=== PATIENT | female | born 1990 | race Hispanic/Latino ===

== ENCOUNTER 2024-08-02 23:17 | Emergency (ER) | payer SELFPAY ==
[~2024-08-02] VITALS: Ht 154.9 cm; Wt 53.1 kg
--- NOTE | 2024-08-02 23:34 | NUR ---
PATIENT BEING VERBALLY ABUSIVE TOWARDS STAFF, YELLING, CRYING C/O ABDOMINAL PAIN, ED MD MADE AWARE.
--- NOTE | 2024-08-02 23:40 | NUR ---
PATIENT IS ALERT AND ORIENTED X4, PATIENT BEING VERBALLY ABUSIVE TOWARDS STAFF, STANDING, YELLING ACROSS THE HALLWAY. REPORTED SHE "FELL IN THE ROOM BECAUSE OF THE PAIN". PATIENT WAS ADVISED TO PULL THE CORD IN THE RESTOOM ONCE SHE WAS DONE URINATING IF ASSITANCE WAS NEEDED, PATIENT HAD VERBALIZED UNDESTANDING. NO DEFORMITY NOTED TO BLE. PATIENT DENIED HITTING HEAD OR LOC, NO BLOOD THINNERS. MIDLEVEL PA, HOUSE SUP AND CHARGE NURSE MADE AWARE.
--- NOTE | 2024-08-02 23:42 | NUR ---
PATIENT IN BED, CALL LIGHT WITHIN REACH, PATIENT WAS EDUCATED ON AND VERBALIZED UNDERSTANDING OF THE IMPORTANCE OF USING CALL LIGHT FOR ASSITANCE, VITAL SIGNS WITHIN RANGE.
[2024-08-02] MEDS: ketOROlac 15MG/ML VIAL (15MG/ML) ONE (23:53)
[2024-08-02] MEDS: ketOROlac 15MG/ML VIAL (15MG/ML) IV ONE (23:53)
[2024-08-02 23:55] LABS: BASOPHILS # (AUTO) 0.07 K/uL (0.00-0.20); BASOPHILS % (AUTO) 0.5 % (0.0-5.0); EOSINOPHILS # (AUTO) 0.27 K/uL (0.00-0.70); EOSINOPHILS % (AUTO) 1.8 % (0.0-8.0); HEMATOCRIT 41.8 % (36-48); IMMATURE GRANULOCYTE ABSOLUTE 0.05 K/uL (0-1); LYMPHOCYTES # (AUTO) 3.7 K/uL (1.0-4.8); LYMPHOCYTES % (AUTO) 25.1 % (21.0-51.0); MEAN CORPUSCULAR HEMOGLOBIN 30.1 pg (27.0-33.0); MEAN CORPUSCULAR HGB CONC 32.1 g/dL (32.0-36.0); MEAN CORPUSCULAR VOLUME 93.9 fL (79-99); MONOCYTES # (AUTO) 1.2 K/uL (0.1-1.0); NEUTROPHILS # (AUTO) 9.5 K/uL (1.8-7.7); NEUTROPHILS % (AUTO) 64.3 % (40.0-77.0); PLATELET COUNT (AUTO) 296 K/uL (130-400); RED BLOOD CELL COUNT(AUTO) 4.45 MIL/uL (4.00-5.50); RED CELL DISTRIBUTION WIDTH 11.8 % (11.0-15.5); WHITE BLOOD COUNT (AUTO) 14.8 K/uL (4.8-10.8)
[2024-08-03 00:07] LABS: APPEARANCE,URINE CLEAR (CLEAR); BILIRUBIN,URINE NEGATIVE (NEGATIVE); COLOR,URINE COLORLESS (YELLOW); GLUCOSE, URINE (UA) NEGATIVE (NEGATIVE); KETONES,URINE NEGATIVE (NEGATIVE); LEUKOCYTE ESTERASE ,URINE 250 Leu/uL (NEGATIVE); NITRATE,URINE NEGATIVE (NEGATIVE); OCCULT BLOOD,URINE MODERATE (NEGATIVE); PH,URINE 6.5 (5.0-8.0); PROTEIN,URINE NEGATIVE (NEGATIVE); UROBILINOGEN,URINE 0.2 mg/dL (0.2-1.0)
[2024-08-03 00:08] LABS: ADD UA MICROSCOPIC YES
[2024-08-03 00:14] LABS: BILIRUBIN,DIRECT 0.1 mg/dL (0.0-0.3); BILIRUBIN,TOTAL 0.4 mg/dL (0.2-1.0); TOTAL PROTEIN, SERUM 7.7 g/dL (6.0-8.3)
[2024-08-03 00:22] LABS: CREATININE 0.7 mg/dL (0.5-1.0); POTASSIUM 3.2 mmol/L (3.5-5.1)
[2024-08-03 00:24] LABS: BACTERIA,URINE MANY /HPF (None Seen); MUCUS,URINE RARE LPF (None Seen); RBC,URINE 0-1 /HPF (0-1); SQUAMOUS EPITHELIAL CELL,UR RARE /HPF (0-2)
--- NOTE | 2024-08-03 00:45 | HMCIMG ---
CT ABDOMEN/PELVIS W/O CONTRAST HISTORY: Renal stone COMPARISON: None TECHNIQUE: Multiple sequential axial images of the abdomen and pelvis were obtained from the dome of the diaphragm through symphysis pubis. Patient was not given contrast through intravenous route. Oral contrast was not given. FINDINGS: No pleural effusion is seen bilaterally. There is no evidence of parenchymal disease or pulmonary nodule of the visualized lower lungs. The heart is not enlarged. The liver, spleen, adrenal glands and pancreas are unremarkable. There is no evidence of hydronephrosis bilaterally. No evidence of renal stone is seen. Fecal material is seen in the colon. There are normal size retroperitoneal and mesenteric lymph nodes. No ascites is seen. Atherosclerotic changes are present. Pelvic sidewalls are symmetric bilaterally. Bladder is well distended without wall thickening. IMPRESSION: 1. No acute findings. CT was performed with one or more following dose reduction techniques: automated exposure control, adjustment of the mA and kv according to patient's size, or use of a iterative reconstruction technique.
--- NOTE | 2024-08-03 01:07 | ERN ---
General Chief Complaint: Abdominal Pain Stated Complaint: BILATERAL FLANK PAIN WITH DIARRHEA Time Seen by MD: 23:25 Time Seen by Midlevel: 23:25 Source: patient History of Present Illness Initial Comments The patient is a 33-year-old female being brought in by EMS for evaluation of bilateral flank pain with associated diarrhea that allegedly started yesterday. According to EMS the patient reported more than 10 episodes of diarrhea in the last 24 hours. She rates the pain 10/10 Allergies: Coded Allergies: No Known Drug Allergies (Unverified Allergy, Unknown, 08/02/24) Home Meds Active Scripts Famotidine (Pepcid) 20 Mg Tablet, 1 TAB PO BID for 10 Days, #20 TAB 0 Refills Prov:MAYELA TAYLOR 08/03/24 Ondansetron (Ondansetron Odt) 4 Mg Tab.rapdis, 4 MG PO BID for 7 Days, #14 TAB Prov:MAYELA TAYLOR 08/03/24 Nitrofurantoin/Nitrofuran Mac (Macrobid) 100 Mg Cap, 1 CAP PO BID for 7 Days, #14 CAP 0 Refills Prov:MAYELA TAYLOR 08/03/24 Past Medical History Past Medical History: No Pertinent History Past Surgical History: None Female( History) LMP: Jun 28, 2024 ROS Dictation CONSTITUTIONAL: Negative except for HPI HEAD/FACE: Negative except for HPI EENT: Negative except for HPI RESPIRATORY: Negative except for HPI GASTROINTESTINAL/ABDOMINAL: Negative except for HPI GENITOURINARY: Negative except for HPI MUSCULOSKELETAL: Negative except for HPI INTEGUMENTARY: Negative except for HPI NEUROLOGICAL/PSYCH: Negative except for HPI HEMATOLOGIC/LYMPHATIC: Negative except for HPI All Systems Negative, Except as noted above. 13 point review of systems assessed and all negative except for above. Physical Exam Physical Exam Dictation Vital Signs reviewed General Appearance: Alert, verbally abusive towards staff Head and Face: non-traumatic. Eyes: PERRL, pink conjunctivas, eyelid no trauma, anterior chamber with arcus senilis. Ears: Pinnas intact and no signs of trauma or erythema ear canals clear and no discharge TM no erythema Nose: No discharge, no bleeding. Oropharynx: Mouth normal, tongue pink, pharynx clear,no erythema, tonsils no exudates, no abscesses noted, mucous membrane moist Neck: Supple, non-tender, no thyromegaly, no masses, no JVD, no bruits Breast:Deferred Chest:No tenderness, no crepitus, no paradoxical movement, no retractions Lungs:Clear, well-ventilated, symmetric, no rales, no wheezing, no rhonchi, no stridor, good breath sounds bilaterally Heart: Regular rate, regular rhythm, no murmur, no gallops Vascular: no peripheral edema, Abdomen: Soft, positive bowel sounds, nondistended, no guarding, nontender, no rebound, no masses no hepatomegaly, no splenomegaly, no Kunz's sign, no hernias. Rectal: Deferred Genital: Deferred Neurological: Normal speech, motor function intact, sensory function intact Musculoskeletal: Neck nontender, full range of motion, back nontender, full range of motion, Extremities: nontender, full range of motion Skin: Color pink, dry, no turgor, no rash, no lacerations, no abrasions, no contusions. Lymphatic: Deferred Results Laboratory and Microbiology Lab and Micro Result Laboratory Tests Test 08/02/24 23:45 08/02/24 23:48 Urine Color COLORLESS (YELLOW) Urine Appearance CLEAR (CLEAR) Urine pH 6.5 (5.0-8.0) Urine Specific [place] 1.001 (1.001-1.031) Urine Protein NEGATIVE mg/dL (NEGATIVE) Urine Glucose (UA) NEGATIVE mg/dL (NEGATIVE) Urine Ketones NEGATIVE mg/dL (NEGATIVE) Urine Occult Blood MODERATE (NEGATIVE) H Urine Nitrate NEGATIVE (NEGATIVE) Urine Bilirubin NEGATIVE mg/dL (NEGATIVE) Urine Urobilinogen 0.2 mg/dL (0.2-1.0) Urine Leukocyte Esterase 250 Chiara/uL (NEGATIVE) H Urine RBC 0-1 /HPF (0-1) Urine WBC 11-25 /HPF (0-1) H Urine Squamous Epithelial Cells RARE /HPF (0-2) Urine Bacteria MANY /HPF (None Seen) Urine HCG, Qualitative NEGATIVE (NEGATIVE) White Blood Count 14.8 K/uL (4.8-10.8) H Red Blood Count 4.45 MIL/uL (4.00-5.50) Hemoglobin 13.4 g/dL (12.0-16.0) Hematocrit 41.8 % (36-48) Mean Corpuscular Volume 93.9 fL (79-99) Mean Corpuscular Hemoglobin 30.1 pg (27.0-33.0) Mean Corpuscular Hemoglobin Concent 32.1 g/dL (32.0-36.0) Red Cell Distribution Width 11.8 % (11.0-15.5) Platelet Count 296 K/uL (130-400) Mean Platelet Volume 9.9 fL (7.5-10.5) Immature Granulocyte % (Auto) 0.3 % (0-1) Neutrophils (%) (Auto) 64.3 % (40.0-77.0) Lymphocytes (%) (Auto) 25.1 % (21.0-51.0) Monocytes (%) (Auto) 8.0 % (3.0-13.0) Eosinophils (%) (Auto) 1.8 % (0.0-8.0) Basophils (%) (Auto) 0.5 % (0.0-5.0) Neutrophils # (Auto) 9.5 K/uL (1.8-7.7) H Lymphocytes # (Auto) 3.7 K/uL (1.0-4.8) Monocytes # (Auto) 1.2 K/uL (0.1-1.0) H Eosinophils # (Auto) 0.27 K/uL (0.00-0.70) Basophils # (Auto) 0.07 K/uL (0.00-0.20) Absolute Immature Granulocyte (auto 0.05 K/uL (0-1) Nucleated Red Blood Cells 0.0 % (0.0-0.19) Sodium Level 138 mmol/L (136-145) Potassium Level 3.2 mmol/L (3.5-5.1) L Chloride Level 104 mmol/L (101-111) Carbon Dioxide Level 26 mmol/L (21-32) Blood Urea Nitrogen 11 mg/dL (7-18) Creatinine 0.7 mg/dL (0.5-1.0) Glomerular Filtration Rate Calc 118 mL/min (>90) Random Glucose 111 mg/dL (70-105) H Total Calcium 8.4 mg/dL (8.5-10.1) L Total Bilirubin 0.4 mg/dL (0.2-1.0) Direct Bilirubin 0.1 mg/dL (0.0-0.3) Aspartate Amino Transf (AST/SGOT) 16 U/L (10-37) Alanine Aminotransferase (ALT/SGPT) 15 U/L (12-78) Alkaline Phosphatase 101 U/L (50-136) Total Protein 7.7 g/dL (6.0-8.3) Albumin 4.0 g/dL (3.5-5.0) Lipase 46 U/L (16-77) Labs Reviewed?: Yes MDM MDM: The patient is a 33-year-old female being brought in by EMS for evaluation of bilateral flank pain with associated diarrhea that allegedly started yesterday. According to EMS the patient reported more than 10 episodes of diarrhea in the last 24 hours. She rates the pain 10/10. Initial clinical evaluation reveals grossly normal vital signs. When she was brought in by EMS she was screaming in the hallway asking for pain medication. The room was assigned to the patient and she was transported over to room 18. When I was on my way into the examination room to examined the patient she had walked out in the hallway and was being verbally abusive to BERTA Hicks. Multiple foul words were yelled in the hallway. I kindly asked her to walk back into the room so that we can speak however she voiced that she wanted to leave. I then informed the patient the location of our exit doors. I informed the nurse to call the police department if she attempted to leave with an IV in place. The patient ultimately walked back into the room and an abdominal workup was initiated. Her CBC shows leukocytosis with a white blood cell count of 14.8. No anemia or no thrombocytopenia is noted. Her chemistries reveal a slightly low potassium of 3.2. There is no hyponatremia. BUN creatinine are normal. Liver function tests are unremarkable. Lipase is normal. No evidence of pancreatitis. Urinalysis shows moderate occult blood with 250 leuk esterase and many bacteria in the urine. test was negative. A CT scan of the abdomen/pelvis was obtained to rule out a renal stone. However, her CT scan of the abdomen/pelvis without contrast is grossly unremarkable. There was no acute finding per the radiologist report. While in the emergency department the patient has had no episodes of vomiting and has remained stable. Once her results had resulted I went back into the room to discuss lab and imaging findings. I informed the patient her lab and imaging findings. She continued to state that something was wrong with her intestines and that she wanted a 2nd opinion. She asked when she was going to see the doctor in a replied that I was the one taking care of her in the emergency department. She became extremely upset and was using foul language. She became verbally abusive so I decided to exit the room as I no longer felt safe. The patient was still given prescriptions for antinausea medication along with an oral antibiotic for outpatient management. She was also given a referral to see a GI specialist for further outpatient management. Differential diagnosis: Urinary tract infection, ureter stone, pancreatitis, gastroenteritis There are no social concerns with this patient. Prescription drug management Prescriptions will include: Zofran, Pepcid, Macrobid Medical management and examination interpretation discussions were had by me with other qualified healthcare professionals as indicated for the patient's care. ED Course Orders Procedure Category Date Status Time Vital Signs Per CPOE 08/02/24 Transmitted Routine 23:29 Saline Lock Iv CPOE 08/02/24 Transmitted 23:29 Cbc With Differential LAB 08/02/24 Complete 23:29 Lipase LAB 08/02/24 Complete 23:29 Urinalysis Profile LAB 08/02/24 Complete 23:29 Basic Metabolic Panel LAB 08/02/24 Complete 23:29 ,Urine Test LAB 08/02/24 Complete 23:29 Hepatic Function Panel LAB 08/02/24 Complete 23:31 Ketorolac PHA 08/03/24 Complete Tromethamine 15mg/Ml 00:00 Ct Abdomen/Pelvis W/O CT 08/02/24 Resulted Contrast 23:31 Ketorolac PHA 08/02/24 Complete Tromethamine 15mg/Ml 23:35 Culture Urine JAQUAN 08/03/24 In Process 00:08 Ceftriaxone 1g Vial PHA 08/03/24 Complete (Rocephine 1g Inj) 01:00 Current Medications Medications (Trade) Dose Ordered Sig/Gilberto Route PRN Reason Start Time Stop Time Status Last Admin Dose Admin Ceftriaxone Sodium (ROCEphine 1G INJ) 1 gm ONCE ONCE IVPB 08/03/24 01:00 08/03/24 01:01 DC 08/03/24 01:24 Ketorolac Tromethamine (toRADol) 15 mg ONCE ONCE IV 08/03/24 00:00 08/03/24 00:01 DC 08/02/24 23:53 Ketorolac Tromethamine (toRADol) 15 mg STK-MED ONCE .ROUTE 08/02/24 23:35 08/02/24 23:35 DC Vital Signs Date Time Temp Pulse Resp B/P (MAP) Pulse Ox O2 Delivery O2 Flow Rate FiO2 08/02/24 23:30 97.9 84 18 135/95 100 Room Air* 0 21 08/02/24 23:23 98.8 88 16 119/81 100 Room Air 0 DX & DISP Disposition: Discharge Departure Impression: Primary Impression: Urinary tract infection Condition: Stable Scripts Famotidine (Pepcid) 20 Mg Tablet 1 TAB PO BID for 10 Days, #20 TAB 0 Refills Prov: MAYELA TAYLOR 08/03/24 Ondansetron (Ondansetron Odt) 4 Mg Tab.rapdis 4 MG PO BID for 7 Days, #14 TAB Prov: MAYELA TAYLOR 08/03/24 Nitrofurantoin/Nitrofuran Mac (Macrobid) 100 Mg Cap 1 CAP PO BID for 7 Days, #14 CAP 0 Refills Prov: MAYELA TAYLOR 08/03/24 Additional Instructions: Your blood work today is stable. Your urinalysis is consistent with infection. I have given you a prescription for oral antibiotics for outpatient management. Your CT scan of the abdomen/pelvis shows no acute finding. You mentioned you wanted a 2nd opinion you can follow up with your primary care doctor. I have given you a referral with the GI specialist so you can see them outpatient. If you develop any new or worsening symptoms please report to the ER for further evaluation. Referrals: TERRI SEVERINO MD Time of Disposition: 01:03 I have reviewed the case, and I agree with, Diagnosis and Plan I performed the substantive portion of the visit. I have reviewed and personally made and approve the management plan that is documented in the note by myself or the SONYA. I acknowledge for responsibility for the patient's management plan. MAYELA TAYLOR Aug 03, 2024 01:07
[2024-08-03] MEDS ORDERED: ONDA-243 PO (01:15)
[2024-08-03] MEDS ORDERED: MACR100 PO (01:15)
[2024-08-03] MEDS ORDERED: FAMO-136 PO (01:15)
[2024-08-03] MEDS: cefTRIAXone 1G VIAL IVPB ONE (01:24)
[2024-08-03 02:09] VITALS: BP 124/79; PULSE 76; RESP 16; TEMP 98.6; O2SAT 100
== END 2024-08-03 02:10 | disposition home or self-care (01) ==
LOC: EDH 23:17
DX: N39.0 Urinary tract infection, site not specified (principal); Z79.899 Other long term (current) drug therapy
CPT/HCPCS: 99285; 74176; 96374; 80076; 80048; 83690; 85025; 87086 ×2; 87186; 81001; 81025; 36415; 96375; J1885; J0696